=== PATIENT | female | born 1990 | race Caucasian/White ===

== ENCOUNTER → 2020-11-27 | Outpatient (CLI) | payer BC | LOC: LAB 13:36 | DX: B99.9 Unspecified infectious disease (principal) ==

== ENCOUNTER → 2021-09-12 | Outpatient (CLI) | payer OTHER | LOC: LAB 13:38 | DX: Z20.822 Contact with and (suspected) exposure to COVID-19 (principal) ==

== ENCOUNTER 2022-07-22 15:59 | Emergency (ER) | payer OTHER ==
[2022-07-22] MEDS ORDERED: CEFDINIR300 MG PO (17:08)
[2022-07-22 17:27] VITALS: BP 136/74
== END 2022-07-22 17:30 | disposition home or self-care (01) ==
LOC: ED 15:59
DX: H66.91 Otitis media, unspecified, right ear (principal)

== ENCOUNTER → 2024-09-20 | Outpatient (CLI) | payer BC ==
[~2024-09-20] MED LIST: CEFDINIR300 MG PO
== END ==
LOC: RAD 11:46
DX: R05.9 Cough, unspecified (principal)